=== PATIENT | female | born 2005 | race Caucasian/White ===

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

== ENCOUNTER 2025-02-13 18:22 | Emergency (ER) | payer OTHER, SELFPAY ==
[2025-02-13 18:38] VITALS: BP 130/83; PULSE 95; RESP 16; TEMP 37.4; O2SAT 99; BMI 19.8
--- OUTSIDE RECORDS SUMMARY | 2025-02-13 18:39 | XMS_ITS | Clinical Summary ---
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 Medications No information available. Medications Administered No information available. Allergies, Adverse Reactions, Alerts No information available. Results No information available. Plan of Care No information available. Procedures No information available. Vital Signs No information available. Immunizations No information available. Advance Directives No information available.
--- NOTE | 2025-02-13 18:44 | HMH.EDGENADL ---
Discharge Plan Disposition Patient Disposition: Home, Self-Care Prescriptions Prescriptions: New triamcinolone acetonide 0.1 % cream 1 applic topical BID 7 Days Qty: 454 0RF hydroxyzine pamoate [Vistaril] 25 mg capsule 25 mg PO Q8H PRN (Reason: itching) 7 Days Qty: 21 0RF No Action metoclopramide HCl [Reglan] 10 mg tablet 10 mg PO Q6H PRN (Reason: nausea and vomiting) Qty: 14 0RF Referrals Follow up/Referrals: Provider,Referral, MD [Primary Care Provider, Medical] - See instructions Activity Restrictions/Add. Instructions Additional Instructions/Restrictions: You have diffuse and extensive bug bites and I have prescribed to you an antihistamine that should help with the itching as well as a topical steroid to place in the areas that are bothering you significantly. Return with any significant worsening of your symptoms or other concerns. Clinical Impressions Clinical Impression: Bug bites, Itching Instructions Patient Instructions: DI for Skin Abscess Print Language Print Language: Kazakh Discharge ED Provider: Sergio Brunner General Adult HPI General Chief complaint: Skin/Abscess/Foreign Body Stated complaint: Bite on left leg redness spreading Time Seen by Provider: 02/13/25 18:36 Mode of Arrival: Ambulatory Source of Information: Patient Description of Symptoms (Recalled from ER Triage Doc. by RN): pt presents to ED with c/o bug bite and rash. pt reports that she went camping this past weekend. pt reports left lower leg bug bite and rash that has spread from legs to back. History of Present Illness HPI narrative: Patient is a 20-year-old female presenting today with extensive bug bites after going camping. States that they are all over her legs and her trunk and that the itching has been driving her insane. She is tried multiple [id number] medications and is here for symptomatic relief. No other symptoms no past medical history that she is concerned about at [facility]. She states that she checked her beds and she did not notice any evidence of any bedbugs. Related Data Previous Rx's ?Medication ?Instructions ?Recorded metoclopramide HCl 10 mg tablet 10 mg PO Q6H PRN nausea and 09/09/24 (Reglan) vomiting #14 tabs hydroxyzine pamoate 25 mg capsule 25 mg PO Q8H PRN itching 7 days 02/13/25 (Vistaril) #21 caps triamcinolone acetonide 0.1 % 1 applic topical BID 7 days #454 02/13/25 topical cream grams Allergies Allergy/AdvReac Type Severity Reaction Status Date / Time diphenhydramine (From Allergy Anaphylaxis Verified 05/26/24 09:50 Benadryl) [facility] Disclaimer: The information contained in this section may have been updated after the patient was seen, as this information can be updated by other users. Medical History (Updated 02/13/25 @ 18:43 by Sergio Brunner MD) History of COVID-19 Asthma Migraine Depression Anxiety History of gastroesophageal reflux (GERD) Asthma Type 2 diabetes mellitus Scoliosis Diabetes type 2, uncontrolled Surgical History Hx of colonoscopy Family History Other Cancer Diabetes Hypertension Kidney disease Social History Smoking Status: Never smoker alcohol intake: never substance use type: former substance user, opiates, IV drugs and methamphetamine current occupational status: unemployed Travel in the last 8 weeks?: None caffeine: Yes Have you lived/traveled outside US in past 30 days?: No Contact w/someone who lives/traveled outside US past 30 days?: No Exposure to someone with infectious disease in past 14 days?: No Do you have a fever (greater than 100.4 F or 38 C)?: No Have you tested positive for COVID-19?: No Exposed to someone with COVID-19 in past 14 days?: No Do you have a sore throat?: No Do you have a cough?: No Do you have any weakness?: No Do you have any diarrhea?: No Are you experiencing any unusual bleeding?: No Do you have any muscle aches/pain?: No Do you have any abdominal pain?: No Are you experiencing loss of taste or smell?: No ROS Obtained: Yes All systems reviewed & no additional complaints except as documented Physical Exam General General appearance: alert and in no apparent distress Respiratory Respiratory exam: Present normal lung sounds bilaterally Cardiovascular Cardiovascular exam: Present regular rate Neurological Exam Neurological exam: Present alert and oriented X3 Skin Skin exam: Present rash (Extensive small punctate erythematous lesions without any evidence of surrounding cellulitis or purulence throughout her legs and trunk) Medical Decision Making Medical Records Screening: Per USPSTF and CDC recommendations, given the prevalence of disease in our region, it is our hospital?s policy to screen for HIV and viral Hepatitis for all patients aged 18 and over and those with ongoing risk factors. Zay Inquiry Pt receiving controlled substance: No Vital Signs: 02/13/25 18:38 Temperature 99.4 F Temperature Source Oral Pulse Rate [Left Radial] 95 H Respiratory Rate 16 Blood Pressure [Right Arm] 130/83 Blood Pressure Mean [Right Arm] 98 Blood Pressure Source [Right Arm] Automatic Cuff Blood Pressure Position [Right Arm] Supine 02 Sat by Pulse Oximetry 99 Oxygen Delivery Method Room Air Medical Decision Narrative: 20-year-old with above history and physical this is consistent with extensive bug bites. I asked her about bedbugs but she claims that this is not possible but certainly still in the differential. Will give her some topical steroid cream in addition to oral antihistamines. This should help her symptomatically as she heals. Patient was discharged in stable condition. Critical Care Critical Care Time Critical Care Time: No
[2025-02-13 18:59] VITALS: BP 130/83; PULSE 87; RESP 16; TEMP 36.6; O2SAT 98
== END 2025-02-13 19:11 | disposition home or self-care (01) ==
PROVIDERS: Emergency Provider Student in an Organized Health Care Education/Training Program
DX: S80.862A Insect bite (nonvenomous), left lower leg, initial encounter (principal); S80.861A Insect bite (nonvenomous), right lower leg, initial encounter; L29.9 Pruritus, unspecified; W57.XXXA Bitten or stung by nonvenomous insect and other nonvenomous arthropods, initial encounter
CPT/HCPCS: 99283

== ENCOUNTER 2025-05-05 07:35 | Emergency (ER) | payer OTHER, SELFPAY ==
[2025-05-05] VITALS (32 sets, daily range): BP systolic 111–149; BP diastolic 74–96; PULSE 68–103; RESP 16–18; TEMP 36.6–36.9; O2SAT 96–100; BMI 17.2
--- OUTSIDE RECORDS SUMMARY | 2025-05-05 07:40 | XMS_ITS | Clinical Summary ---
Author Organization [facility] Address [address] [place] [address] Phone Care Team Providers Care Systems Project Manager Name Role Phone Unavailable Unavailable Conditions or Problems No information available. Medications No information available. Medications Administered No information available. Allergies, Adverse Reactions, Alerts No information available. Results No information available. Plan of Care No information available. Procedures No information available. Vital Signs No information available. Immunizations No information available. Advance Directives No information available.
--- NOTE | 2025-05-05 07:47 | HMH.EDGENADL ---
Discharge Plan Disposition Patient Disposition: Home, Self-Care Condition: Good Prescriptions Prescriptions: No Action triamcinolone acetonide 0.1 % cream 1 applic topical BID 7 Days Qty: 454 0RF hydroxyzine pamoate [Vistaril] 25 mg capsule 25 mg PO Q8H PRN (Reason: itching) 7 Days Qty: 21 0RF metoclopramide HCl [Reglan] 10 mg tablet 10 mg PO Q6H PRN (Reason: nausea and vomiting) Qty: 14 0RF Referrals Follow up/Referrals: Henry Hodges II, MD [Staff Physician, Gastroenterology] - See instructions Referral Note: n/v heavy weight loss Dionte King MD [Primary Care Provider, Internal Medicine] - See instructions Referral Note: f/u after ED visit Activity Restrictions/Add. Instructions Additional Instructions/Restrictions: Please take Zofran for nausea and vomiting. Please try your best to eat foods that are high in potassium including bananas, green vegetables, potatoes. Please follow-up with PCP and GI outpatient. If symptoms worsen, or new symptoms develop, please return to the emergency department. Clinical Impressions Clinical Impression: Nausea & vomiting Instructions Patient Instructions: DI for Diarrhea and Traveler's Diarrhea in Adults, DI for Diarrhea and Traveler's Diarrhea in Children, DI for Nausea in Adults, DI for Nausea in Children Print Language Print Language: Chinese Discharge ED Provider: Dajuan Woodard General Adult HPI General Chief complaint: Nausea/Vomiting/Diarrhea Stated complaint: Unable to keep anything down/weakness Time Seen by Provider: 05/05/25 07:47 History of Present Illness HPI narrative: This patient is a 20-year-old female with minimal past medical history who presents to the emergency department with complaints of persistent nausea and vomiting and significant weight loss. The patient reports that over the last 9 to 10 months she has lost nearly 200 pounds. She reports at 1 point weighing 290 pounds, she is currently 110. She has 3-4 episodes of vomiting a day, she is unable to tolerate most foods. She reports that she was evaluated here 3 to 4 months ago had a laboratory workup which was normal and tentatively diagnosed with cannabinoid hyperemesis syndrome, she has stopped smoking weed with no change in her nausea. She endorses some chills and intermittent hot flashes, no night sweats. Related Data Previous Rx's ?Medication ?Instructions ?Recorded metoclopramide HCl 10 mg tablet 10 mg PO Q6H PRN nausea and 09/09/24 (Reglan) vomiting #14 tabs hydroxyzine pamoate 25 mg capsule 25 mg PO Q8H PRN itching 7 days 02/13/25 (Vistaril) #21 caps triamcinolone acetonide 0.1 % 1 applic topical BID 7 days #454 02/13/25 topical cream grams Allergies Allergy/AdvReac Type Severity Reaction Status Date / Time diphenhydramine (From Allergy Anaphylaxis Verified 05/26/24 09:50 Benadryl) [facility] Disclaimer: The information contained in this section may have been updated after the patient was seen, as this information can be updated by other users. Medical History (Updated 05/05/25 @ 11:16 by Dajuan Woodard MD) History of COVID-19 Asthma Migraine Depression Anxiety History of gastroesophageal reflux (GERD) Asthma Type 2 diabetes mellitus Scoliosis Diabetes type 2, uncontrolled Surgical History Hx of colonoscopy Family History Other Cancer Diabetes Hypertension Kidney disease Social History Smoking Status: Current every day smoker alcohol intake: never substance use type: former substance user, opiates, IV drugs and methamphetamine current occupational status: unemployed Travel in the last 8 weeks?: None caffeine: Yes Have you lived/traveled outside [place] in past 30 days?: No Contact w/someone who lives/traveled outside [place] past 30 days?: No Exposure to someone with infectious disease in past 14 days?: No Do you have a fever (greater than 100.4 F or 38 C)?: No Have you tested positive for COVID-19?: No Exposed to someone with COVID-19 in past 14 days?: No Do you have a sore throat?: No Do you have a cough?: No Do you have any weakness?: No Do you have any diarrhea?: No Are you experiencing any unusual bleeding?: No Do you have any muscle aches/pain?: No Do you have any abdominal pain?: No Are you experiencing loss of taste or smell?: No ROS Obtained: Yes All systems reviewed & no additional complaints except as documented Physical Exam General General appearance: alert and in no apparent distress Head Head exam: atraumatic and normocephalic Eye Eye exam: Present normal appearance, PERRL and EOMI ENT ENT exam: Present normal exam and normal external ear exam Neck Neck exam: Present normal inspection, full ROM and trachea midline Chest Chest inspection: Present normal inspection and symmetric chest wall rise; Absent tenderness Respiratory Respiratory exam: Absent respiratory distress Cardiovascular Cardiovascular exam: Present regular rate, normal rhythm and other (appears warm and well perfused) Abdominal Exam Abdominal exam: Absent distention or tenderness Extremities Exam Extremities exam: Present normal inspection and full ROM Neurological Exam Neurological exam: Present alert and oriented X3 Psychiatric Psychiatric exam: Present normal affect Skin Skin exam: Present warm and dry Medical Decision Making Medical Records Medical records reviewed: Yes I reviewed the patient's medical records. Screening: Per USPSTF and CDC recommendations, given the prevalence of disease in our region, it is our hospital?s policy to screen for HIV and viral Hepatitis for all patients aged 18 and over and those with ongoing risk factors. Zay Inquiry Pt receiving controlled substance: No Zay was queried for this patient: No Vital Signs: 05/05/25 07:38 05/05/25 07:38 05/05/25 07:46 Temperature 98.5 F 98.5 F Temperature Source Oral Oral Pulse Rate 103 H 101 H Pulse Rate [Right] 103 H Respiratory Rate 18 18 Blood Pressure 149/96 H 126/90 Blood Pressure [Right Arm] 149/96 H Blood Pressure Mean Blood Pressure Mean [Right Arm] 113 Blood Pressure Source Automatic Cuff Blood Pressure Source [Right Arm] Automatic Cuff Blood Pressure Position Supine Blood Pressure Position [Right Arm] Supine 02 Sat by Pulse Oximetry 98 98 98 Oxygen Delivery Method Room Air Room Air Room Air 05/05/25 08:00 05/05/25 08:05 05/05/25 08:10 Temperature Temperature Source Pulse Rate 101 H 101 H 96 H Pulse Rate [Right] Respiratory Rate Blood Pressure 125/91 H 140/95 H 125/90 Blood Pressure [Right Arm] Blood Pressure Mean Blood Pressure Mean [Right Arm] Blood Pressure Source Blood Pressure Source [Right Arm] Blood Pressure Position Blood Pressure Position [Right Arm] 02 Sat by Pulse Oximetry 97 99 98 Oxygen Delivery Method Room Air Room Air Room Air 05/05/25 08:11 05/05/25 08:15 05/05/25 08:20 Temperature Temperature Source Pulse Rate 89 77 Pulse Rate [Right] Respiratory Rate Blood Pressure 125/90 120/87 Blood Pressure [Right Arm] Blood Pressure Mean Blood Pressure Mean [Right Arm] Blood Pressure Source Blood Pressure Source [Right Arm] Blood Pressure Position Blood Pressure Position [Right Arm] 02 Sat by Pulse Oximetry 98 98 98 Oxygen Delivery Method Room Air Room Air Room Air 05/05/25 08:25 05/05/25 08:30 05/05/25 08:35 Temperature Temperature Source Pulse Rate 83 90 83 Pulse Rate [Right] Respiratory Rate Blood Pressure 118/85 122/83 125/84 Blood Pressure [Right Arm] Blood Pressure Mean Blood Pressure Mean [Right Arm] Blood Pressure Source Blood Pressure Source [Right Arm] Blood Pressure Position Blood Pressure Position [Right Arm] 02 Sat by Pulse Oximetry 98 99 99 Oxygen Delivery Method Room Air Room Air Room Air 05/05/25 08:40 05/05/25 08:44 05/05/25 08:55 Temperature Temperature Source Pulse Rate 85 98 H 93 H Pulse Rate [Right] Respiratory Rate Blood Pressure 129/83 117/83 129/90 Blood Pressure [Right Arm] Blood Pressure Mean Blood Pressure Mean [Right Arm] Blood Pressure Source Blood Pressure Source [Right Arm] Blood Pressure Position Blood Pressure Position [Right Arm] 02 Sat by Pulse Oximetry 99 99 97 Oxygen Delivery Method Room Air Room Air Room Air 05/05/25 09:00 05/05/25 09:10 05/05/25 09:15 Temperature Temperature Source Pulse Rate 85 86 76 Pulse Rate [Right] Respiratory Rate Blood Pressure 133/93 H 131/88 125/93 H Blood Pressure [Right Arm] Blood Pressure Mean 103 Blood Pressure Mean [Right Arm] Blood Pressure Source Blood Pressure Source [Right Arm] Blood Pressure Position Blood Pressure Position [Right Arm] 02 Sat by Pulse Oximetry 98 99 96 Oxygen Delivery Method Room Air Room Air Room Air 05/05/25 09:20 05/05/25 09:25 05/05/25 09:30 Temperature Temperature Source Pulse Rate 74 69 80 Pulse Rate [Right] Respiratory Rate Blood Pressure 123/86 114/83 124/92 H Blood Pressure [Right Arm] Blood Pressure Mean Blood Pressure Mean [Right Arm] Blood Pressure Source Blood Pressure Source [Right Arm] Blood Pressure Position Blood Pressure Position [Right Arm] 02 Sat by Pulse Oximetry 99 98 99 Oxygen Delivery Method Room Air Room Air Room Air 05/05/25 09:35 05/05/25 09:40 05/05/25 09:45 Temperature Temperature Source Pulse Rate 82 79 80 Pulse Rate [Right] Respiratory Rate Blood Pressure 127/85 125/90 118/84 Blood Pressure [Right Arm] Blood Pressure Mean Blood Pressure Mean [Right Arm] Blood Pressure Source Blood Pressure Source [Right Arm] Blood Pressure Position Blood Pressure Position [Right Arm] 02 Sat by Pulse Oximetry 100 100 100 Oxygen Delivery Method Room Air Room Air Room Air 05/05/25 09:50 05/05/25 09:55 05/05/25 10:00 Temperature Temperature Source Pulse Rate 84 75 69 Pulse Rate [Right] Respiratory Rate Blood Pressure 122/87 122/83 120/87 Blood Pressure [Right Arm] Blood Pressure Mean Blood Pressure Mean [Right Arm] Blood Pressure Source Blood Pressure Source [Right Arm] Blood Pressure Position Blood Pressure Position [Right Arm] 02 Sat by Pulse Oximetry 100 100 100 Oxygen Delivery Method Room Air Room Air Room Air 05/05/25 10:05 05/05/25 10:10 05/05/25 10:15 Temperature Temperature Source Pulse Rate 75 83 92 H Pulse Rate [Right] Respiratory Rate Blood Pressure 122/83 121/81 134/74 Blood Pressure [Right Arm] Blood Pressure Mean Blood Pressure Mean [Right Arm] Blood Pressure Source Blood Pressure Source [Right Arm] Blood Pressure Position Blood Pressure Position [Right Arm] 02 Sat by Pulse Oximetry 100 100 100 Oxygen Delivery Method Room Air Room Air Room Air 05/05/25 10:20 05/05/25 10:30 05/05/25 11:35 Temperature 98 F Temperature Source Oral Pulse Rate 98 H 89 68 Pulse Rate [Right] Respiratory Rate 16 Blood Pressure 129/81 133/87 111/79 Blood Pressure [Right Arm] Blood Pressure Mean Blood Pressure Mean [Right Arm] Blood Pressure Source Automatic Cuff Blood Pressure Source [Right Arm] Blood Pressure Position Sitting Blood Pressure Position [Right Arm] 02 Sat by Pulse Oximetry 100 100 Oxygen Delivery Method Room Air Room Air Room Air Lab Data Lab results reviewed: Yes I reviewed the patient's lab results. Lab Results 05/05/25 07:57: WBC 7.4, RBC 4.96, Hgb 15.0, Hct 42.4, MCV 85.5, MCH 30.2, MCHC 35.4, RDW 12.0, Plt Count 326, MPV 11.4 H, Neut % (Auto) 50.6, Lymph % (Auto) 38.5, [place] % (Auto) 7.2, Eos % (Auto) 2.8, Baso % (Auto) 0.8, Neut # (Auto) 3.7, Lymph # (Auto) 2.8, [place] # (Auto) 0.5, Eos # (Auto) 0.2, Baso # (Auto) 0.1, Sodium 139, Potassium 3.1 L, Chloride 102, Carbon Dioxide 23, Anion Gap 17.1 H, BUN 3 L, Creatinine 0.70, Estimated Creat Clear 101, Estimated GFR 107, Est GFR ( Amer) 129, Glucose 105 H, Calcium 9.4, Total Bilirubin 1.0, AST 26, ALT 17, Alkaline Phosphatase 56, C-Reactive Protein < 0.3, Total Protein 9.0 H, Albumin 5.5 H, Globulin 3.5 H, Albumin/Globulin Ratio 1.6, Lipase 65, Serum HCG, Qual Negative, HCV Ab NOEL w/Rflx PCR Qn Negative, HIV Ag/Ab Combo Qual Negative 05/05/25 09:11: Urine Color Yellow, Urine Appearance Clear, Urine pH 6.5, Ur Specific [place] <= 1.005, Urine Protein Negative, Urine Glucose (UA) Negative, Urine Ketones Negative, Urine Blood Negative, Urine Nitrate Negative, Urine Bilirubin Negative, Urine Urobilinogen 0.2, Ur Leukocyte Esterase Negative, Urine RBC None, Urine WBC Occasional, Ur Squamous Epith Cells 3-5, Urine Bacteria Trace, Urine Opiates Screen Negative, Urine Methadone Screen Negative, Ur Barbituates Screen Negative, Ur Phencyclidine Scrn Negative, Ur Amphetamines Screen Negative, U Benzodiazepines Scrn Negative, Urine Cocaine Screen Negative, U Marijuana (THC) Screen Positive H 05/05/25 07:57 05/05/25 07:57 Orders (Tests/Meds): ED MEDICATIONS Discontinued Medications Generic Name Dose Route Start Last Admin Trade Name Freq PRN Reason Stop Dose Admin Lactated Ringer's 1,000 mls @ 999 mls/hr 05/05/25 07:47 05/05/25 10:42 Lactated Ringer's 1000 Ml Bag IV 05/05/25 08:47 Infused .Q1H1M ONE Infusion Iopamidol 75 ml 05/05/25 08:50 05/05/25 08:51 Iopamidol-370 (76%);100ml Bottle IV 05/05/25 08:51 75 ml ONCE ONE Administration Ondansetron HCl 4 mg 05/05/25 07:47 05/05/25 09:04 Ondansetron 4mg Odt SL 05/05/25 07:48 4 mg ONCE ONE Administration Potassium Chloride 40 meq 05/05/25 08:33 05/05/25 09:03 Potassium Chloride 20meq Tab PO 05/05/25 08:34 40 meq ONCE ONE Administration Sodium Chloride 10 ml 05/05/25 08:50 05/05/25 08:51 Sodium Chloride 0.9% 10ml Syr (Rad Only) IV 06/04/25 08:49 10 ml NEEDED PRN Administration Maintain IV Site ORDERS Category Date Time Status CT abdomen pelvis w con Stat Cat Scan 05/05/25 07:[address] chest w con Stat Cat Scan 05/05/25 07:51 Completed Beta HCG, Qual [HCG Qualitative, Serum] Stat Lab 05/05/25 07:57 Completed CBC w/Auto Diff [Complete Blood Count Auto Diff] Stat Lab 05/05/25 07:57 Completed CMP [Comprehensive Metabolic Panel] Stat Lab 05/05/25 07:57 Completed CRP [C-Reactive Protein] Stat Lab 05/05/25 07:57 Completed HIV Combo Stat Lab 05/05/25 07:57 Completed Hepatitis C Ab Qual. W/ RFX Stat Lab 05/05/25 07:57 Completed Lipase Stat Lab 05/05/25 07:57 Completed Prealbumin Stat Lab 05/05/25 07:57 Received UA [Urinalysis and Microscopic] Stat Lab 05/05/25 09:11 Completed UDS [Drug Screen,Urine] Stat Lab 05/05/25 09:11 Completed Medical Decision Narrative: MDM In summary, this 20-year-old presents to the emergency department today with weight loss. Initial evaluation the patient comfortable, hemodynamically stable. Differential diagnosis includes but is not limited to cannabinoid hyperemesis syndrome, metastatic disease, lymphoma, leukemia. Based on these concerns, I ordered a comprehensive laboratory and imaging workup. ECG personally interpreted by me demonstrates normal sinus rhythm. Patient received Zofran, lactated ringer for treatment. Labs personally reviewed and interpreted demonstrate no leukocytosis, no anemia, normal albumin, no major metabolic abnormalities. CT imaging personally interpreted by me demonstrate no acute findings within the chest, abdomen, pelvis. On my initial evaluationconcern for oncologic disease. The patient reported extraordinary weight loss over the last 10 months. Her laboratory workup was very reassuring, she had no signs of malnutrition including normal albumin, no significant anemia, no major metabolic abnormalities with the exception of mild hypokalemia. CT scan showed no concern for oncologic abnormality within the chest, abdomen, pelvis. I discussed these results with the patient, she did report that she was continuing to use some marijuana and was concerned that this could be related to cannabinoid hyperemesis syndrome. We discussed that this was primarily a diagnosis of exclusion, I encouraged her to follow-up with gastroenterology outpatient to receive an endoscopy and colonoscopy and rule out other causes of nausea and vomiting including H. pylori and GERD. The patient was comfortable with this plan and able to tolerate p.o. intake. I did supplement her potassium due to mild hypokalemia. Her level was not significant and so we felt it was appropriate to simply recommend that she eat potassium heavy foods Critical Care Critical Care Time Critical Care Time: No
--- NOTE | 2025-05-05 07:51 | CT_ITS ---
FINAL REPORT TECHNIQUE: Thin section axial images were obtained from the thoracic inlet through the upper abdomen after intravenous contrast injection. Reconstruction images were obtained from the axial data. Exam was performed using dose reduction technique. CLINICAL HISTORY: significant weight loss/ b symptoms FINDINGS: There is no mediastinal, hilar, or axillary lymphadenopathy. There is no pleural or pericardial effusion. The lungs are clear. No acute osseous abnormality. IMPRESSION: No acute intrathoracic abnormality. Reviewed, Interpreted and Dictated by Josie Davies MD Transcribed by Tameka Turcios Authenticated and [facility]
--- NOTE | 2025-05-05 07:51 | CT_ITS ---
FINAL REPORT TECHNIQUE: Thin section axial images are obtained through the abdomen and pelvis after intravenous contrast. Reconstruction images were obtained from the axial data. Exam was performed using dose reduction techniques. CLINICAL HISTORY: significant weight loss/ b symptoms COMPARISON: 03/21/2024 FINDINGS: LIVER: Homogeneous. No focal lesion. GALLBLADDER/BILIARY SYSTEM: Gallbladder is present. No gallstones. No biliary dilatation. SPLEEN: Unremarkable. PANCREAS: Unremarkable. ADRENALS: Unremarkable. KIDNEYS/URETERS/BLADDER: No hydronephrosis, renal mass, or renal stone. Unremarkable urinary bladder. GI TRACT: No small bowel obstruction or dilatation. Normal appendix. No acute colon abnormality. PELVIC ORGANS: Uterus and ovaries unremarkable for age. LYMPH NODES/RETROPERITONEUM/MESENTERY: No lymphadenopathy. No abdominal aortic aneurysm. ABDOMINAL WALL: The abdominal wall is intact. FREE FLUID: Physiologic free fluid. BONES: No acute osseous abnormality. IMPRESSION: No acute intra-abdominal or intrapelvic abnormality. Reviewed, Interpreted and Dictated by Josie Davies MD Transcribed by Tameka Turcios Authenticated and [facility]
[2025-05-05 08:09] LABS: Hematocrit 42.4 % (37.0-47.0); Hemoglobin 15.0 g/dL (12.2-16.2); Immature Granulocytes % 0.1 %; Mean Corpuscular HGB Conc 35.4 g/dL (31.8-35.4); Mean Corpuscular Hemoglobin 30.2 pg (27.0-31.2); Mean Corpuscular Volume 85.5 fl (81-99); Nucleated Red Blood Cells % 0 %; Platelet Count 326 K/mm3 (142-424); Red Blood Count 4.96 M/mm3 (4.20-5.40); Red Cell Distribution Width-SD 37.0 fL; White Blood Count 7.4 K/mm3 (4.5-13.0)
[2025-05-05 08:15] LABS: Chloride 102 mmol/L (98-107); Potassium 3.1 mmoL/L (3.5-5.1); Sodium 139 mmol/L (136-145)
[2025-05-05 08:17] LABS: Blood Urea Nitrogen 3 mg/dl (7-17); Creatinine Clearance Estimated 101 mL/min (50-200); Creatinine,Serum 0.70 mg/dl (0.52-1.04); Estimated Glomerular Filt Rate 107 ml/min (>60); GFR (African American) 129 ML/MIN (>60)
[2025-05-05 08:18] LABS: Alanine Aminotransferase 17 U/L (12-78); Alkaline Phosphatase 56 U/L (38-126); Anion Gap 17.1 mEq/L (5-15); Aspartate Amino Transferase 26 U/L (14-36); Bilirubin,Total 1.0 mg/dl (0.2-1.3); Calcium 9.4 mg/dl (8.4-10.2); Carbon Dioxide 23 mmol/L (22.0-30.0); Glucose 105 mg/dl (74-100); Lipase 65 U/L (23-300); Total Protein,Serum 9.0 g/dl (6.3-8.2)
[2025-05-05 08:28] LABS: HCG Qualitative, Serum Negative (Negative)
[2025-05-05 08:33] LABS: Albumin Level 5.5 g/dl (3.5-5.0)
[2025-05-05 08:35] LABS: Albumin/Globulin Ratio 1.6 (1.1-1.8); Globulin 3.5 g/dL (1.3-3.2)
[2025-05-05 08:42] LABS: C-Reactive Protein < 0.3 mg/L (0-4)
[2025-05-05] MEDS: IOPAMIDOL-370 (76%);100ML BOTTLE 75 ML IV (08:51)
[2025-05-05] MEDS: SODIUM CHLORIDE 0.9% 10ML SYR (RAD ONLY) 10 ML IV (08:51)
[2025-05-05] MEDS: POTASSIUM CHLORIDE 20MEQ TAB 40 MEQ PO (09:03)
[2025-05-05] MEDS: ONDANSETRON 4MG ODT 4 MG SL (09:04)
[2025-05-05] MEDS: LACTATED RINGERS 1000ML 1,000 ML 999 ML IV (09:08)
[2025-05-05 09:15] LABS: Microscopic, Urine URINE MICROSCOPIC (MICROSCOPIC)
[2025-05-05 09:22] LABS: Hepatitis C Ab Qual. W/ RFX NEGATIVE (Negative)
[2025-05-05 09:40] LABS: Bilirubin,Urine Negative (Negative); Color,Urine YELLOW (Yellow); Glucose,Urine (UA) Negative (Negative); Ketones,Urine Negative (Negative); Leukocyte Esterase,Urine Negative (Negative); PH,Urine 6.5 (5.0-8.5); Protein,Urine Negative (Negative); Specific Gravity, Urine <= 1.005 (1.005-1.030); Urobilinogen,Urine 0.2 EU/dl (0.2)
[2025-05-05 09:51] LABS: Barbiturates Screen,Urine Negative ng/ml (<200); Benzodiazepines Screen,Urine Negative ng/ml (<200)
[2025-05-05 09:52] LABS: Amphetamine/Metha Screen,Urine Negative ng/ml (<1000)
[2025-05-05 09:53] LABS: Methadone Screen,Urine Negative ng/ml (<300)
[2025-05-05 09:55] LABS: Opiate Screen,Urine Negative ng/ml (<300)
[2025-05-05 09:58] LABS: Phencyclidine Screen,Urine Negative ng/ml (<25)
[2025-05-05 10:57] LABS: Bacteria,Urine Trace /lpf; WBC,Urine Occasional #/hpf (0-3)
[2025-05-06 12:13] LABS: Prealbumin 18 mg/dL (14-35)
== END 2025-05-05 11:36 | disposition home or self-care (01) ==
PROVIDERS: Emergency Provider Student in an Organized Health Care Education/Training Program; PCP Internal Medicine Adolescent Medicine
DX: R11.2 Nausea with vomiting, unspecified (principal); E87.6 Hypokalemia; R53.1 Weakness; F17.210 Nicotine dependence, cigarettes, uncomplicated; F12.90 Cannabis use, unspecified, uncomplicated
CPT/HCPCS: 71260; 74177; 80053; 80307; 81001; 83690; 84134; 84703; 85025; 86140; 86803; 87389; 96360; 99285; J7120; Q0162; Q9967